=== PATIENT | female | born 1975 | race African-American/Black ===

== ENCOUNTER 2017-11-23 12:22 | Emergency (ER) | payer MEDICARE, MEDICAID ==
[2017-11-23] MEDS ORDERED: IPRATROPIUM/ALBUTEROL 0.5-2.5 MG/3 ML AMPUL NEB ONE (14:27)
[2017-11-23] MEDS ORDERED: ALBUTEROL SULFATE 0.083% NEB 2.5 MG/3 ML AMPUL NEB ONE (14:28)
--- NOTE | 2017-11-23 14:28 | ER Document Report ---
HPI - HPI Patient complains to provider of: fever chills aches for 4 days Onset: Other - 4 days Onset/Duration: Gradual Pain Level: 4 Context: 42 yo female c/o cough, fever, bodyaches, congestion for 4 days. No chest gregory or sob. No n/v/d. No abd. pIn. No dysuria. Associated Symptoms: Other - see above Exacerbated by: Denies Relieved by: Denies - ROS ROS below otherwise negative: Yes Systems Reviewed and Negative: Yes All other systems reviewed and negative Past Medical History - General Information source: Patient - Social History Smoking Status: Current Every Day Smoker Frequency of alcohol use: None Drug Abuse: None Family History: Reviewed & Not Pertinent - Medical History Medical History: Negative Surgical Hx: Negative Vertical Provider Document - CONSTITUTIONAL Agree With Documented VS: Yes Exam Limitations: No Limitations General Appearance: No Apparent Distress - INFECTION CONTROL TRAVEL OUTSIDE OF THE [place] IN LAST 30 DAYS: No - HEENT HEENT: Normocephalic, Pharyngeal Erythema. negative: Conjuctival Injection, Tympanic Membrane Red Notes: boggy nares - NECK Neck: Supple. negative: Lymphadenopathy-Left, Lymphadenopathy-Right - RESPIRATORY Respiratory: No Respiratory Distress, Wheezing - scattered coarse - CARDIOVASCULAR Cardiovascular: Regular Rate, Regular Rhythm - MUSCULOSKELETAL/EXTREMETIES Musculoskeletal/Extremeties: MAEW - NEURO Level of Consciousness: Alert - DERM Integumentary: No Rash Course - Re-evaluation Re-evalutation: 11/23/17 15:07 Chest x-ray is negative per radiologist - Vital Signs Vital signs: Temp Pulse Resp BP Pulse Ox 100.5 F H 80 20 133/80 H 100 11/23/17 12:44 11/23/17 12:44 11/23/17 12:44 11/23/17 12:44 11/23/17 12:44 Discharge - Discharge Clinical Impression: Bronchitis Condition: Good Disposition: HOME, SELF-CARE Instructions: Bronchitis ([facility]), Inhaled Bronchodilators ([facility]), Stop Smoking ( [facility]), Steroid Medication, Tessalon Perles ([facility]) Additional Instructions: Stop smoking Rest Drink plenty of fluids Use the albuterol metered-dose inhaler 2 puffs every 3 hours for the cough Tylenol up to 4000 mg per day for fever Motrin 3 times a day for inflammation and body aches Prescriptions: RX: Albuterol Sulfate [Proair HFA Inhalation Aerosol 8.5 gm MDI] 2 puff IH Q3HP PRN #1 hfa.[email or web address].ad PRN Reason: Benzonatate [Tessalon Perles 100 mg Capsule] 100 mg PO ASDIR PRN #30 capsule PRN Reason: Forms: Return to Work
--- NOTE | 2017-11-23 15:05 | RADIOLOGY REPORT (SQ) ---
EXAM DESCRIPTION: CHEST 2 VIEWS COMPLETED DATE/TIME: 11/23/2017 2:52 pm REASON FOR STUDY: cough, congestion COMPARISON: None. EXAM PARAMETERS: NUMBER OF VIEWS: two views TECHNIQUE: Digital Frontal and Lateral radiographic views of the chest acquired. RADIATION DOSE: NA LIMITATIONS: none FINDINGS: LUNGS AND PLEURA: No opacities, masses or pneumothorax. No pleural effusion. MEDIASTINUM AND HILAR STRUCTURES: No masses or contour abnormalities. HEART AND VASCULAR STRUCTURES: Heart normal size. No evidence for failure. BONES: Slight to mild scoliosis apex to the right involving the thoracic spine. HARDWARE: None in the chest. OTHER: No other significant finding. IMPRESSION: NO ACUTE RADIOGRAPHIC FINDING IN THE CHEST. TECHNICAL DOCUMENTATION: JOB ID: [id number] [employer],- All Rights Reserved Reading location - IP/workstation name: [email or web address] [email or web address]
[2017-11-23] MEDS ORDERED: PREDNISONE 20 MG TABLET PO ONE (15:10)
[2017-11-23 15:54] VITALS: BP 119/65
== END 2017-11-23 15:54 | disposition home or self-care (01) ==
LOC: ER 12:22
DX: J40 Bronchitis, not specified as acute or chronic (principal); R50.9 Fever, unspecified; M79.1 Myalgia; F17.200 Nicotine dependence, unspecified, uncomplicated
CPT/HCPCS: 94640; 99283; 71046; A9270 ×2; J7512; J7620